=== PATIENT | female | born 1990 | race Caucasian/White ===

== ENCOUNTER → 2019-07-31 | Outpatient (CLI) | payer OTHER ==
[2019-07-31 10:28] LABS: BASOPHILS ABSOLUTE AUTO 0.03 K/mm3 (0.00-0.23); BASOPHILS PERCENT AUTO 1 % (0-2); EOSINOPHILS ABSOLUTE AUTO 0.25 K/mm3 (0.00-0.68); EOSINOPHILS PERCENT AUTO 4 % (0-6); Hematocrit 38.8 % (33.0-51.0); Hemoglobin 13.3 g/dL (11.5-16.0); IMMATURE GRAN ABSOLUTE AUTO 0.01 K/mm3 (0.00-0.10); IMMATURE GRAN PERCENT AUTO 0 % (0-1); LYMPHOCYTES ABSOLUTE AUTO 1.67 K/mm3 (0.84-5.20); LYMPHOCYTES PERCENT AUTO 30 % (21-46); MONOCYTES ABSOLUTE AUTO 0.49 K/mm3 (0.16-1.47); MONOCYTES PERCENT AUTO 9 % (4-13); Mean Corpuscular HGB 30.6 pg (26.0-34.0); Mean Corpuscular HGB Conc 34.3 g/dL (31.5-36.5); Mean Corpuscular Volume 89 fL (80-100); Mean Platelet Volume 9.8 fL (9.1-12.4); NEUTROPHILS PERCENT AUTO 57 % (41-73); Platelet Count 258 K/mm3 (150-400); RDW Coefficient Variation 12.1 % (11.7-14.2); RDW Standard Deviation 39.3 fL (35.1-46.3); Red Blood Cell Count 4.35 M/mm3 (3.80-5.20); White Blood Cell Count 5.65 K/mm3 (4.00-11.30)
== END ==
LOC: LAB EV 10:23 → LAB SHORT 10:23
PROVIDERS: Family Medicine
DX: R53.83 Other fatigue (principal)
CPT/HCPCS: 84443; 85025

== ENCOUNTER → 2023-12-21 | Outpatient (CLI) | payer OTHER ==
[2023-12-27 12:23] LABS: HPV HIGH RISK BY TMA Not Detected; HPV SOURCE Cervical
== END | disposition home or self-care (01) ==
LOC: LAB SHORT 16:25
PROVIDERS: Nurse Practitioner Family
DX: Z01.419 Encounter for gynecological examination (general) (routine) without abnormal findings (principal); Z12.4 Encounter for screening for malignant neoplasm of cervix
CPT/HCPCS: 87624; G0123

== ENCOUNTER 2024-04-05 08:30 | Day surgery (SDC) | payer OTHER ==
[~2024-04-05] VITALS: Ht 167.6 cm; Wt 74.1 kg
[~2024-04-05 08:30] MED LIST: Lactated Ringer's 1,000 ML IV ONE
[2024-04-05] MEDS ORDERED: Ketorolac Tromethamine 30mg Vial ONE (08:40)
[2024-04-05] MEDS ORDERED: Ondansetron HCl 2 MG / ML 2ML Vial ONE (08:40)
[2024-04-05] MEDS ORDERED: Rocuronium Bromide 10 MG/ML 5ML Injection IV ONE (08:40)
[2024-04-05] MEDS ORDERED: Dexamethasone Sod Phos 10 MG/ML 1ML VIAL ONE (08:40)
[2024-04-05] MEDS ORDERED: propofoL 20 ML IV ONE (08:40)
[2024-04-05] MEDS ORDERED: FentaNYL Citrate 50 MCG/ML 2 ML Injection ONE (08:40)
[2024-04-05] MEDS ORDERED: MECL25 PO (08:55)
[2024-04-05] MEDS ORDERED: Lactated Ringer's 1,000 ML IV ONE (09:01)
[2024-04-05] MEDS ORDERED: Ropivacaine 0.5% HCL/PF 5 MG/ML 30ML Vial ONE (09:36)
[2024-04-05] MEDS ORDERED: Sugammadex Sodium 200 MG/2ML SDV (100 MG/ML) ONE (09:44)
[2024-04-05] MEDS ORDERED: EPINEPhrine HCl 1 MG/ML 1ML Amp XX ONE (10:07)
--- NOTE | 2024-04-05 10:11 | NUR ---
04/05/24 1011 Jason Jimenez EDILIA AREA PREPPED WITH DIULTED CHLORHEXADINE BY TOPHER ABDOMINAL AREA PREPPED W/ CHLOR PREP BY HUNG
[2024-04-05] MEDS ORDERED: Acetaminophen 500 MG Tab ONE (11:02)
[2024-04-05 11:20] VITALS: BP 127/71
== END 2024-04-05 11:25 | disposition home or self-care (01) ==
LOC: ORSCSDS 08:30
PROVIDERS: Obstetrics & Gynecology
PROC: 0UT74ZZ Resection of Bilateral Fallopian Tubes, Percutaneous Endoscopic Approach (ICD-10-PCS; principal; 2024-04-05 10:05)
DX: Z30.2 Encounter for sterilization (principal); N83.8 Other noninflammatory disorders of ovary, fallopian tube and broad ligament
CPT/HCPCS: 88302; A9270; J0171; J1100; J1885; J2405; J2704; J2795; J3010; J7120

== ENCOUNTER → 2024-08-27 | Outpatient (CLI) | payer OTHER ==
[~2024-08-27] MED LIST changes: -Lactated Ringer's 1,000 ML IV ONE; +MECL25 PO
== END | disposition home or self-care (01) ==
LOC: LAB SHORT 18:24 → LAB 18:24
DX: N39.0 Urinary tract infection, site not specified (principal); R31.9 Hematuria, unspecified
CPT/HCPCS: 87077; 87086; 87186